=== PATIENT | male | born 1945 | race Caucasian/White ===

== ENCOUNTER 2018-04-21 20:02 | Emergency (ER) | payer OTHER ==
[~2018-04-21 20:02] MED LIST: Sodium Chloride Irrig Solution 250 ML BOT ONE
[2018-04-21] MEDS ORDERED: Adacel (T-DAP) 0.5 ML VIAL ONE (20:16)
[2018-04-21] MEDS ORDERED: Bacitracin Zinc 1 Packet ONE (20:22)
== END 2018-04-21 20:44 | disposition home or self-care (01) ==
LOC: MADERS 20:02
DX: S01.01XA Laceration without foreign body of scalp, initial encounter (principal); F17.220 Nicotine dependence, chewing tobacco, uncomplicated; I10 Essential (primary) hypertension; Z79.899 Other long term (current) drug therapy; V98.8XXA Other specified transport accidents, initial encounter
CPT/HCPCS: 12002; 90471; 90715